=== PATIENT | female | born 1995 | race African-American/Black ===

== ENCOUNTER 2019-06-02 13:32 | Inpatient (IN) ==
[2019-06-02 16:23] LABS: BASO# 0.03 X1000 (0.0-0.2); BASO% 0.4 % (0.0-0.8); EOS# 0.24 X1000 (0.0-0.7); EOS% 3.6 % (0.0-10.0); HEMATOCRIT 38.1 % (37.0-47.0); HEMOGLOBIN 12.1 g/dL (12.0-16.0); IMM GRAN# 0.01 X1000 (0.0-0.04); IMM GRAN% 0.1 % (0.0-0.5); LYMPH# 1.77 X1000 (1.2-3.4); LYMPH% 26.2 % (20.5-51.1); MCH 28.9 PG (27-31); MCHC 31.8 g/dL (33-37); MCV 90.9 FL (81-99); MONO# 0.51 X1000 (0.11-0.59); MONO% 7.6 % (1.7-9.3); MPV 9.8 FL (7.4-10.4); NEUT# 4.19 X1000 (1.4-6.5); NEUT% 62.1 % (42.2-75.2); PLT 470 X1000 (130-400); RBC 4.19 XMIL (4.2-5.4); RDW 13.9 % (11.5-14.5); WBC 6.75 X1000 (4.8-10.8)
[2019-06-02 16:24] LABS: URINE SOURCE CLEAN CATCH
[2019-06-02 16:27] LABS: BILIRUBIN URINE NEGATIVE (NEGATIVE); BLOOD URINE SMALL (NEGATIVE); COLOR YELLOW; GLUCOSE URINE NEGATIVE (NEGATIVE); KETONE URINE NEGATIVE (NEGATIVE); LEUKOCYTES URINE MODERATE (NEGATIVE); NITRITE URINE NEGATIVE (NEGATIVE); PROTEIN URINE NEGATIVE (NEGATIVE); SP GRAVITY URINE 1.013; TURBIDITY URINE CLEAR (CLEAR); UROBILINOGEN URINE NORMAL (NORMAL)
[2019-06-02 16:28] LABS: UR EPITHELIAL CELLS <10 /HPF (<10); URINE BACTERIA 1+ /HPF; URINE RBC <10 /HPF (<10); URINE WBC 20-40 /HPF (<10)
[2019-06-02 16:48] LABS: AGAP 12; BUN 12 mg/dL (8-22); CALCIUM 9.8 mg/dL (8.8-10.2); CHLORIDE 106 mmol/L (98-107); COSMO 280; ESTIMATED GFR > 60; GLUCOSE 84 mg/dL (70-104); POTASSIUM 3.9 mmol/L (3.5-5.1); SODIUM 141 mmol/L (136-145); TCO2 23 mmol/L (25-35)
[2019-06-02] MEDS ORDERED: TYLENOL PO ONE (17:19)
[2019-06-02] MEDS ORDERED: ROCEPHIN 1 GM in NS 50 ML IV ONE (17:33)
[2019-06-02] MEDS ORDERED: APRESOLINE IV ONE (17:33)
--- NOTE | 2019-06-02 17:35 | EKG Report ---
Test Performed on : 06/02/2019 4:00:20 PM Test Reason : BP ISSUES Blood Pressure : / mmHG Vent. Rate : 047 BPM Atrial Rate : 047 BPM P-R Int : 116 ms QRS Dur : 068 ms QT Int : 484 ms P-R-T Axes : 056 043 032 degrees QTc Int : 428 ms Sinus bradycardia. Possible Left atrial enlargement Borderline ECG When compared with ECG of 04-NOV-2017 07:31, No significant change was found Unconfirmed Result
[2019-06-02] MEDS ORDERED: APRESOLINE IV SCH (21:39)
[2019-06-02] MEDS ORDERED: ZOFRAN IV PRN (21:39)
[2019-06-02] MEDS: TYLENOL PO PRN (22:50)
[2019-06-03] MEDS: APRESOLINE IV SCH ×3 (01:19→10:10)
[2019-06-03 05:48] LABS: BASO# 0.02 X1000 (0.0-0.2); BASO% 0.3 % (0.0-0.8); EOS# 0.26 X1000 (0.0-0.7); HEMATOCRIT 41.4 % (37.0-47.0); HEMOGLOBIN 13.2 g/dL (12.0-16.0); LYMPH# 1.75 X1000 (1.2-3.4); LYMPH% 26.7 % (20.5-51.1); MCH 29.2 PG (27-31); MCHC 31.9 g/dL (33-37); MCV 91.6 FL (81-99); MONO# 0.47 X1000 (0.11-0.59); MONO% 7.2 % (1.7-9.3); MPV 10.1 FL (7.4-10.4); NEUT# 4.05 X1000 (1.4-6.5); NEUT% 61.8 % (42.2-75.2); PLT 464 X1000 (130-400); RBC 4.52 XMIL (4.2-5.4); RDW 13.9 % (11.5-14.5); WBC 6.55 X1000 (4.8-10.8)
[2019-06-03 06:04] LABS: AGAP 15; ALBUMIN 3.7 g/dL (3.5-5.0); BUN 13 mg/dL (8-22); CALCIUM 9.7 mg/dL (8.8-10.2); CHLORIDE 105 mmol/L (98-107); COSMO 281; CREATININE 0.8 mg/dL (0.5-0.9); ESTIMATED GFR > 60; GLUCOSE 89 mg/dL (70-104); PHOSPHORUS 4.6 mg/dL (2.7-4.5); POTASSIUM 3.8 mmol/L (3.5-5.1); SODIUM 141 mmol/L (136-145); TCO2 21 mmol/L (25-35)
--- NOTE | 2019-06-03 06:43 | HISTORY AND PHYSICAL ---
CHIEF COMPLAINT: High blood pressure. HISTORY OF PRESENT ILLNESS: This is a 23-year-old female who is reportedly 2 weeks . She noted she had a headache and checked her blood pressure and it was elevated so she came into the emergency room. She had a proteinuria during her , but this has resolved. On arrival, she was noted to be bradycardic with a heart rate as low as the 40s and blood pressure was elevated in the 160s. She was given hydralazine at [place] and sent to the ICU at [facility], [place]. She will be monitored in the ICU with Cardiac consultation. PAST MEDICAL HISTORY: History of anxiety. She had ectopic as well. PREVIOUS SURGICAL HISTORY: Denies. ALLERGIES: No known drug allergies. HOME MEDICATIONS: No home medications. FAMILY HISTORY: Father has hypertension. Paternal grandmother, diabetes and hypertension. Two paternal aunts with diabetes and mom has borderline diabetes. SOCIAL HISTORY: Previous marijuana use, denies. No alcohol or tobacco. REVIEW OF SYSTEMS: Fourteen point review of systems conducted with the patient. Pertinent positives listed above in the HPI. All other systems reviewed and negative. PHYSICAL EXAMINATION: VITAL SIGNS: Temp 97 degrees, pulse 50, respirations 21, blood pressure 130/71, oxygen saturation 98%. GENERAL: Pleasant 23-year-old female, well-developed, well-nourished, lying in ICU bed, alert and oriented x3. No acute distress. HEENT: Head is atraumatic, normocephalic. Pupils equal, round and reactive to light. Extraocular eye movements intact. Sclerae anicteric. Conjunctivae pink. Oral mucosa is moist. Tonsillar edema bilaterally. Mild exudate on the left tonsil. NECK: Supple. No JVD. No thyromegaly. Trachea is midline. No cervical lymphadenopathy. CARDIAC: S1, S2 appreciated. No murmurs, gallops, rubs. LUNGS: Clear to auscultation bilaterally.No rhonchi, wheezes, rales. ABDOMEN: Soft, nondistended, nontender. Bowel sounds present in all 4 quadrants. Normoactive and no pulsatile mass. No organomegaly. EXTREMITIES: No cyanosis, clubbing or edema. 2+ pedal pulses. NEUROLOGICAL: Alert and oriented x3. No focal motor deficits. Otherwise nonfocal examination. LABORATORY DATA: CBC within normal limits. Creatinine 1. Otherwise, chemistry within normal limits. Rapid strep was negative. Leuko esterase positive, 20-40 WBCs, 1+ bacteria in her urine. ASSESSMENT AND PLAN: 1. Questionable cardiomyopathy. We will order echocardiogram and consult Dr. Mendez with Cardiology. 2. Tachycardia. We will monitor closely in the ICU. Heart rate appears to be stable. 3. Hypertension. Continue hydralazine IV as needed. She may need to go on oral antihypertensives. 4. Pyuria with possible urinary tract infection. After , pyuria can be normal; however, we will give Rocephin 1 gram IV q.24 hours. Further recommendations based on patient's clinical course. Dictated by MITCH Briggs for Chidi Hamilton MD I have performed a face to face diagnostic evaluation. Labs/Xrays- reviewed. Exam- Chest - clear, CV- regular.Abd- soft. A/P- cardiomyopathy, Tachycardia- Admit, cardiology consult, echo. Dr. Hamilton cc: MITCH Briggs MD [facility]
[2019-06-03] MEDS: TYLENOL PO PRN (08:00)
--- NOTE | 2019-06-03 10:35 | DISCHARGE SUMMARY ---
ADMISSION DATE: 06/02/2019 DISCHARGE DATE: 06/03/2019 HISTORY: This a 23-year-old reported with 2 week . She noted she had a headache, checked her blood pressure and it was elevated. She said it was 160/103. During her , she had a little proteinuria and little elevation in blood pressure. On arrival, she was noted to have some bradycardia, rate was in the 40s, systolic blood pressure was 160. She was given hydralazine at [place] and then monitored in ICU, transferred over here. PAST MEDICAL HISTORY: History of anxiety, history of ectopic in the past. PAST SURGICAL HISTORY: Nothing. No significant history. ADMISSION DIAGNOSIS: . HOSPITAL COURSE: 1. Concerned about enlarged heart, wanted to make sure she did not have a cardiomyopathy. Echocardiogram was ordered. Blood pressures remained well controlled. 2. Tachycardia in the emergency room, looks like sinus tachycardia. 3. Hypertension. 4. Pyuria and possible urinary tract infection, so I treated her with some Rocephin. Cultures are pending. She had a throat culture as well. 5. Her current blood pressure is 175/92, 140/89, 139/82, so we will see what her echocardiogram shows. They consulted Cardiology and see if maybe she can go home today. cc: Du Ramos MD
[2019-06-03 12:06] VITALS: BP 155/52
--- NOTE | 2019-06-03 14:03 | DISCHARGE SUMMARY ---
ADMISSION DATE: 06/02/2019 DISCHARGE DATE: 06/03/[address] Drew Mejia. This is a 23-year-old female reported 2 weeks . She noted she had a headache and checked her blood pressure and it was elevated. I think she told me it was 150/103. She had some proteinuria during her and they are watching her blood pressure, had a little bit of bradycardia, heart rates sometimes in the 40s and 50s. She was given some hydralazine at [facility]. History of anxiety. She has a history of ectopic . No previous surgeries. Admitted to the hospital, concerned about possible accelerated hypertension and there was some concern for cardiomyopathy. Echocardiogram showed normal left ventricular function. Normal valvular function. Her blood pressures really appear to be well maintained. We discussed hypertension the goals, the importance of pursuing weight reduction, high potassium diet and aerobic exercise. I will put her on an ANUPAMA inhibitor just 1 time a day and I want to follow up with her primary care physician. Do not see any evidence for renal dysfunction or left ventricular dysfunction. cc: Du Ramos MD
[2019-06-03] MEDS ORDERED: ROCEPHIN 1 GM in NS 50 ML IV SCH (17:00)
--- NOTE | 2019-06-03 17:59 | ECHO REPORT ---
ORDER DATE: 06/02/2019 INTERPRETING PHYSICIAN: Montana Mendez MD. ECHOCARDIOGRAPHIC MEASUREMENTS: 1. Interventricular septum 0.9. 2. Left ventricular posterior wall 0.9. 3. Diastolic diameter 5.2. 4. Left atrium 3.8. 5. Aorta 2.8. SUMMARY OF THE 2-DIMENSIONAL FINDINGS: 1. Aortic valve leaflets are trileaflet. 2. Pulmonic valve is normal. 3. Tricuspid valve is normal. There is trace mitral regurgitation. Mitral valve is normal. There is trace tricuspid regurgitation. Peak velocity across the tricuspid valve is 2.4 m/sec. 4. Pulmonary artery systolic pressure of 33 mmHg. Peak velocity across the aortic valve less than 2 m/sec. There is no aortic stenosis or regurgitation. 5. Normal left ventricular cavity size. Estimated ejection fraction of 65%. 6. There is no pericardial effusion, or obvious intracardiac mass or thrombus seen. cc: MD Cm Ricks MD
--- NOTE | 2019-06-03 19:41 | CARDIOLOGY CONSULTATION ---
DATE: 06/03/2019 CONSULTATION REQUESTED BY: MITCH Bojorquez because of bradycardia and in his mind a question of peripartum cardiomyopathy. HISTORY: Mrs. Feliz is a 23-year-old black female, otherwise healthy, who has delivered a child on May 19. Since then, the patient has had a normal course. She said that she has lost about 20 pounds since her delivery and she has felt basically fine. Yesterday for some reason, she decided to check her blood pressure and found that it was elevated at 140/90. Then she went to the ER and they did multiple blood pressure determinations. They were 162/98, 175/92, 149/90, 161/78, etc. The patient did not complain of any cardiac symptoms at any point in time. She denied having chest pain, shortness of breath, palpitations, syncope, dizziness, etc. She was just feeling fine. However, on the monitor they stated that the patient was indicating bradycardia with heart rates that dropped to "37 beats per minute" and they did an EKG that shows sinus bradycardia with a heart rate of 47 beats per minute 06/02/2019. Of note, this patient has been to the emergency room department on multiple occasions and for example on 11/04/2017 which is a year ago she also had an electrocardiogram that showed exactly the same thing with a sinus bradycardia, rate 47 beats per minute. PAST MEDICAL HISTORY: Is really negative for any major illness. She delivered the child without complications. There is a reported ectopic . ALLERGIES: Negative. HOME MEDICINES: Negative. FAMILY HISTORY: Noncontributory. REVIEW OF SYSTEMS: Is really unremarkable. This woman is basically healthy and has had normal postdelivery course. PHYSICAL EXAMINATION: Vital signs: Blood pressure 139/82, pulse 70, respirations 19, temperature 98.3 degrees. She is awake, alert, oriented, in no distress. HEENT: Unremarkable. Chest: Clear to auscultation and percussion. Heart: Sounds are regular and rhythmic. No gallop or murmur. Abdomen: Nontender. Extremities: Showed no edema. Neurological: Nonfocal. Moves 4 extremities. IMPRESSION: Patient who basically detected asymptomatic hypertension and from that moment on landed in the emergency room where they found that she was bradycardic and that created concern and worries that frankly appeared to be inappropriate given the fact that there are plenty of records indicating that this is not new and the patient is completely asymptomatic.(Moreover, she went through a full term without incident). Her Hypertension should be managed at a level of Primary Care Provider and Request Specialist evaluation if there is failure to respond to usual interventions. Typically, in related Hypertension, in most [facility], The Nephrology Service is consulted first, especially when the patient has no indication nor suspicion of cardiac disease per se. RECOMMENDATION: From my viewpoint, the patient may be discharged home to the care of her usual physicians. Technically she is still under the care of the [facility] service. She does not require a cardiology evaluation. Please call me if you have any questions or concerns. cc: Christiano Zhang MD MTDD
--- NOTE | 2019-06-13 11:31 | PROVIDER DOCUMENTATION ---
This chart was entered by Halle Solorio Scribe, acting as scribe for Tod Mann MD. HPI-General Adult - General Chief Complaint: B/P Problems Stated Complaint: BLOOD PRESSURE PROBLEMS 140/103 @ 13:15 Time Seen by Provider: 06/02/19 15:05 Source: patient Allergies/Adverse Reactions: Patient Allergies Allergy/AdvReac Type Severity Reaction Status Date / Time No Known Allergies Allergy Verified 06/02/19 19:56 Home Medications: Home Medication List Medication Instructions Recorded Confirmed Last Taken Type Lisinopril/Hydrochlorothiazide 1 ea PO DAILY 30 Days #30 tab 06/03/19 Unknown Rx [Lisinopril-Hctz 10-12.5 mg Tab] - History of Present Illness -Gen Adult Nature of Presenting Problems: Patient is a 23 year old female who presents with elevated blood pressure. States having a headache and checked her blood pressure and it was elevated. Reports she is 2 weeks . Location of Pain/Injury: reports: head Pain Radiation: reports: no radiation Quality of Pain: reports: aching Severity: reports: mild Onset/Duration: reports: this morning Timing: reports: still present Context/Activities at Onset: reports: light activity Associated Symptoms: reports: denies symptoms Similar Symptoms Previously?: No Recently seen or treated by another doctor?: Yes Review of Systems - Adult - REVIEW OF SYSTEMS - ADULT Constitutional: reports: no symptoms reported Eyes: reports: no symptoms reported Ears, Nose, Mouth & Throat: reports: no symptoms reported Cardiovascular: reports: no symptoms reported Respiratory: reports: no symptoms reported Gastrointestinal: reports: no symptoms reported Genitourinary: reports: no symptoms reported Musculoskeletal: reports: no symptoms reported Integumentary: reports: no symptoms reported Neurological: reports: headache/migraines (TADEO). denies: dizziness/vertigo, syncope Psychiatric: reports: no symptoms reported Endocrine: reports: no symptoms reported Hematologic/Lymphatic: reports: no symptoms reported Allergic/Immunologic: reports: no symptoms reported All Other Systems: Reviewed and Negative Past History - Adult - PAST MEDICAL HISTORY-ADULT Review of Records: reports: Old Records Reviewed, Nursing Assessment Review, Medications Reviewed, Social history reviewed & non-contributory. Major Childhood Illnesses: reports: denies history Cardiovascular: reports: denies history Respiratory: reports: denies history Gastrointestinal: reports: denies history Obstetrical/Gynecological: reports: denies history Genitourinary: reports: denies history Musculoskeletal: reports: denies history Neurological: reports: denies history Psychiatric: reports: anxiety Endocrine/Immune: reports: denies history Other Conditions: reports: denies history - PRIOR SURGERIES/PROCEDURES Surgical/Procedure History: reports: none - IMMUNIZATION STATUS Childhood Immunizations: See Nurse Assessment Flu Vaccine: See Nurse Assessment - FAMILY HISTORY Family History: reviewed, not pertinent - SOCIAL HISTORY Smoking: cigarettes (former) Substance Use: denies Living Situation: family Physical Exam-General - PHYSICAL EXAM-ADULT Initial Vital Signs Reviewed: Yes - CONSTITUTIONAL General Appearance: alert, no apparent distress. negative: lethargic - HEAD, EARS, NOSE, MOUTH & THROAT HENMT: normocephalic/atraumatic, moist mucous membranes, tonsillar exudate (left), other (bilateral tonsillar swelling). negative: angioedema - RESPIRATORY Respiratory: chest non-tender, lungs clear, normal breath sounds. negative: crackles - CARDIOVASCULAR Cardiovascular: normal peripheral pulses, regular rate, rhythm. negative: tachycardia - GASTROINTESTINAL (ABDOMEN) Abdominal Exam: normal bowel sounds, non tender, soft. negative: rigid - MUSCULOSKELETAL Extremity: non-tender, normal inspection. negative: pedal edema - SKIN Integumentary: normal color, normal turgor, warm/dry. negative: rash - NEUROLOGIC Neurologic: grossly normal. negative: aphasia, facial droop - PSYCHIATRIC Psych/Mental Status: normal mood/affect, oriented x 3 Progress - PLAN OF CARE/RESULTS Progress/Plan/Lab Results: Vital Signs - 8 hr 06/02/19 13:44 Temperature 97.6 F Pulse Rate 55 L Respiratory Rate 18 Blood Pressure 162/98 O2 Sat by Pulse Oximetry 98 Result Diagrams: 06/03/19 04:00 06/03/19 04:00 - REASSESSMENT Reassessment #1 Time Reassessed: 17:26 Status: improving (note mild bradycrdia and hypertension this observation. pt feels well except headache. no protienuria but probable uti, leukocyte esterate +, of course, some pyuria expected. no edema present, persisting pre-exlamplsia improbable. has exudative tonsilitis, jayjay on left. good airway. Rocephin tonight , BP 177/106, HR 45 at this time.) Reassessment #3 Time Reassessed: 18:08 Status: improving (PT ROLLED ONTO LEFT SIDE AND EDGARD DOWN TO 30/MIN! FAVORABLE RESPONSE TO HYDRALAZINE WITH BP 169/83 AND HR UP 65/MIN!) - EKG 1 Time of EKG reading by physician:: 16:00 EKG Read and Signed by:: Tod Mann EKG Interpretation (*Must complete 3 of following elements*): Abnormal Rate: 47 Rhythm: sinus bradycardia [place]: normal MD Interval: normal Comments: possible left atrial enlargement - CONSULTS/PCP/HOSPITALIST Notification #1 *Consult/PCP/Hospitalist*: DR MACK Time Discussed: 17:45 Consult Disposition: other (GLAD TO CONSULT BUT PT NEEDS TO COME IN TO HSOPITALIST/CARDILOGY) #2 Consult: DR LEWIS Time Discussed: 18:05 Consult Disposition: Admit (WILL TRANSFER TO [facility] TO ICU) Departure - Departure Date of Disposition Decision: 06/02/19 Time of Disposition Decision: 18:06 DIAGNOSIS: Hypertension, Sinus bradycardia, Headache Disposition: ADMITTED INPATIENT 09 Certified Medical Emergency: Emergent Condition: Fair - Critical Care Note This patient required my direct & personal management of CC.: Yes Total Time (mins): 45 Critical Care Statement: This patient required my direct personal management to treat or rule out processes, the absence of which, could potentiallly result in sudden, clinically significant life or limb threatening deterioration. Attestation - Physician/ MARITZA Attestation The physician spent face to face time with patient:: Yes Advanced Practice Provider documentation review:: Supervising physician onsite and consulted in the evaluation and care of this patient. The physician did have a face to face encounter with the patient. This chart was documented by the indicated scribe, (Halle Solorio Scribe) and accurately reflects the services I performed and decisions made by me, Tod Mann MD, as attested by the provider's signature.
== END 2019-06-03 14:25 | disposition home or self-care (01) | DRG 776 ==
LOC: P.ED 13:32 → ICU 20:59 → SUATTDRO 20:59
PROVIDERS: ATTEND Emergency Medicine